=== PATIENT | male | born 1990 | race African-American/Black ===

== ENCOUNTER 2016-10-28 02:07 | Emergency (ER) | payer MEDICAID ==
[~2016-10-28] VITALS: Ht 185.4 cm; Wt 72.7 kg
[2016-10-28] MEDS ORDERED: IPRATROPIUM BROMIDE 0.5 MG/2.5 ML NEB SOLUTION NEB ONE (02:30)
[2016-10-28] MEDS ORDERED: ALBUTEROL SULFATE 5 MG/ML 20 ML NEB SOLN [BULK] NEB ONE (02:30)
[2016-10-28] MEDS ORDERED: 0.9% SODIUM CHLORIDE 5 ML NEB SOLUTION NEB ONE (02:51)
[2016-10-28 04:19] VITALS: BP 117/55
== END 2016-10-28 04:27 | disposition home or self-care (01) ==
LOC: EMS 02:09
DX: J45.901 Unspecified asthma with (acute) exacerbation (principal); F12.90 Cannabis use, unspecified, uncomplicated
CPT/HCPCS: 71010; 94640; 99284; J7611